=== PATIENT | female | born 1960 | race Caucasian/White ===

== ENCOUNTER 2017-04-24 14:25 | Emergency (ER) | payer OTHER ==
[~2017-04-24] VITALS: Ht 147.3 cm; Wt 53.0 kg
[~2017-04-24 14:25] MED LIST: IBUP800T23 PO; LORTA5 PO
[2017-04-24 14:29] VITALS: BP 182/86; PULSE 88; RESP 16; TEMP 98.5; O2SAT 99
[2017-04-24] MEDS ORDERED: ZOCO20TA PO (15:51)
[2017-04-24] MEDS ORDERED: LANTUS2P SQ (15:51)
[2017-04-24] MEDS ORDERED: LISI-515 PO (15:51)
[2017-04-24] MEDS ORDERED: PROM6.256 PO (16:37)
--- NOTE | 2017-04-24 16:37 | PD ---
HPI Chief Complaint: Cold / Flu Symptoms Time Seen by Provider: 16:17 Travel History International Travel<30 days: No Contact w/Intl Traveler<30days: No Traveled to known affect area: No History of Present Illness HPI This is a 57-year-old female who presents to the emergency department with productive cough it has been going on for 4 days, constant, moderate severity worse in the evenings with some green sputum production. She denies any fevers or chills. She has had some rhinorrhea. She thinks she has a cold but the cough is keeping her up at night. Her father is in the intensive care unit here with pneumonia. PFSH Past Medical History High Cholesterol: Yes Diabetes: Yes (TYPE 2 ) Patient Takes Glucophage: No Hypertension: Yes Tetanus Vaccination: < 5 Years ?: Not Past Surgical History Section: Yes Social History Alcohol Use: No Tobacco Use: No Substance Use: No Allergies-Medications (Allergen,Severity, Reaction): Coded Allergies: No Known Allergies (Unverified Adverse Reaction, Unknown, 04/24/17) Reported Meds & Prescriptions Reported Meds & Active Scripts Active Promethazine-Codeine Liq 6.25-10 Mg/5 Ml Syrp 5-10 Ml PO Q6H PRN Ibuprofen 800 Mg Tab 800 Mg PO Q6 PRN Hydrocodone/Acetaminophen 5 mg/325 mg 1 Tab Tab 1 Tab PO Q6H PRN Reported Lantus Inj (Insulin Glargine) 1,000 Unit/10 Ml Vial 40 Units SQ DAILY Zocor (Simvastatin) 20 Mg Tab 20 Mg PO DAILY Lisinopril 20 Mg Tab 20 Mg PO DAILY Review of Systems Except as stated in HPI: all other systems reviewed are Neg Physical Exam Narrative GENERAL:Well appearing, no acute distress SKIN: Focused skin assessment warm and dry. HEAD: Atraumatic. Normocephalic. EYES: Pupils equal and round. No injection or drainage. ENT: Moist mucous membranes NECK: Trachea midline. CARDIOVASCULAR: Regular rate and rhythm. No murmur appreciated. RESPIRATORY: Clear to auscultation. Breath sounds equal bilaterally. GASTROINTESTINAL: Abdomen soft, non-tender, nondistended. MUSCULOSKELETAL: No obvious deformities. NEUROLOGICAL: Awake and alert. No obvious cranial nerve deficits. Moving all extremities. PSYCHIATRIC: Appropriate mood and affect; insight and judgment normal. Data Data Last Documented VS Vital Signs Date Time Temp Pulse Resp B/P (MAP) Pulse Ox O2 Delivery O2 Flow Rate FiO2 04/24/17 17:01 04/24/17 14:29 98.5 88 16 99 Room Air Orders Orders Ed Discharge Order (04/24/17 16:37) MDM Medical Decision Making Medical Screen Exam Complete: Yes Emergency Medical Condition: Yes Differential Diagnosis Bronchitis, viral syndrome, influenza, pneumonia Narrative Course This is a 57-year-old female who presents to the emergency department with cough in the setting of a cold. She is afebrile and has reassuring vital signs. She appears very well. I do not think she requires any antibiotic therapy at this time. Patient will be prescribed cough suppressant for evenings. I think she can be discharged home. Diagnosis Primary Impression: Bronchitis Patient Instructions: General Instructions Additional Instructions: If you develop severe chest pain, shortness of breath, sweating, lightheadedness , dizziness or difficulty breathing return to the emergency department immediately. Followup with your primary care physician in 2-3 days if your symptoms are not resolved. Med/Other Pt SpecificInfo: Prescription(s) given Scripts Promethazine-Codeine Liq (Promethazine-Codeine Liq) 6.25-10 Mg/5 Ml Syrp 5-10 ML PO Q6H Y for COUGH AND/OR COLD SYMPTOMS, #60 ML 0 Refills Prov: Tricia Almazan MD 04/24/17 Disposition: 01 DISCHARGE HOME Condition: Stable Tricia Almazan MD Apr 24, 2017 16:37
== END 2017-04-24 17:02 | disposition home or self-care (01) ==
LOC: NEPD 14:25
DX: J40 Bronchitis, not specified as acute or chronic (principal); E78.00 Pure hypercholesterolemia, unspecified; E11.9 Type 2 diabetes mellitus without complications; I10 Essential (primary) hypertension; Z79.4 Long term (current) use of insulin; Z79.899 Other long term (current) drug therapy
CPT/HCPCS: 99283